=== PATIENT | female | born 1980 | race Caucasian/White ===

== ENCOUNTER 2016-11-19 11:09 | Emergency (ER) | payer BC ==
[2016-11-19 11:39] VITALS: BP 96/63
--- NOTE | 2016-11-19 15:21 | UC ---
Back Pain HPI - HPI Summary HPI Summary: pt at 13 wks ga, with h/o of chronic low back pain p/w with c/o acute on chronic low back pain. - History of Current Complaint Chief Complaint: UCBackPain Stated Complaint: LUMBAR PAIN Time Seen by Provider: 11/19/16 12:14 Hx Obtained From: Patient ?: Yes Onset/Duration: Gradual Onset, Lasting Days - 5, Still Present, Worse Since - this am Timing: Constant, Intermittent Severity Initially: Moderate Severity Currently: Severe Pain Intensity: 9 Pain Scale Used: 0-10 Numeric Back Pain: Is Discrete @ - left lower back Character: Dull, Aching, Spasmodic Aggravating: Movement Alleviating: Position Associated Signs And Symptoms: Negative: Swelling, Redness, Bruising, Fever, Weakness, Numbness, Tingling, Abdominal Pain, Flank Pain, Bladder Incontinence, Bowel Incontinence - Allergies/Home Medications Allergies/Adverse Reactions: Allergies Allergy/AdvReac Type Severity Reaction Status Date / Time No Known Allergies Allergy Verified 11/19/16 11:24 Home Medications: Home Medications Acetaminophen [Acetaminophen Extra Stren] 2 tab PO TID PRN 11/19/16 [History Confirmed 11/19/16] Docosahexaenoic Acid [ Dha] 1 tab PO DAILY 11/19/16 [History Confirmed 11/19/16] Levothyroxine TAB* [Synthroid TAB*] 1 tab PO QAM 11/19/16 [History Confirmed ] PMH/Surg Hx/FS Hx/Imm Hx - Additional Past Medical History Additional PMH: chronic low back pain Endocrine History Of: Reports: Thyroid Disease - HYPOTHYROID Denies: Diabetes Cardiovascular History Of: Denies: Cardiac Disorders, Hypertension Respiratory History Of: Denies: COPD, Asthma GI/ History Of: Denies: Ulcer - Surgical History Surgical History: None - Family History Known Family History: Negative: Cardiac Disease, Hypertension, Diabetes - Social History Lives: With Family Alcohol Use: None Substance Use Type: None Smoking Status (MU): Never Smoked Tobacco - Immunization History Most Recent Influenza Vaccination: NO Most Recent Tetanus Shot: UNSURE Most Recent Pneumonia Vaccination: NO Review of Systems Gastrointestinal: Negative Genitourinary: Negative Motor: Negative Neurovascular: Negative Musculoskeletal: Myalgia Neurological: Negative All Other Systems Reviewed And Are Negative: Yes Physical Exam Triage Information Reviewed: Yes Appearance: Well-Appearing, Well-Nourished, Pain Distress - mild Vital Signs: Initial Vital Signs Temp 98.5 F 11/19/16 11:28 Pulse 77 11/19/16 11:28 Resp 16 11/19/16 11:28 BP 96/63 11/19/16 11:28 Pulse Ox 100 11/19/16 11:28 Vital Signs Reviewed: Yes Eyes: Positive: Conjunctiva Clear. Negative: Discharge ENT: Positive: Hearing grossly normal. Negative: Muffled/hoarse voice Neck: Positive: Supple, Nontender Respiratory: Positive: Lungs clear, Normal breath sounds, No respiratory distress, No accessory muscle use Cardiovascular: Positive: RRR, No Murmur Abdomen Description: Positive: Soft. Negative: Distended, Guarding Bowel Sounds: Positive: Present Musculoskeletal Exam: Normal Musculoskeletal: Positive: Strength Intact, No Edema Neurological: Positive: Alert, Muscle Tone Normal, Other: - strength, sensation , reflexes intact bl Psychological: Positive: Age Appropriate Behavior Skin Exam: Normal Back Pain Course/Dx - Differential Dx/Diagnosis Differential Diagnosis/HQI/PQRI: Herniated Disc, Strain, Other - lbp Provider Diagnoses: low back pain Discharge - Discharge Plan Condition: Stable Disposition: HOME Prescriptions: Acetaminop/Codeine 30 MG TAB* [Tylenol/Codeine 30 MG TAB*] 1 tab PO Q6H PRN #6 tab MDD 4 PRN Reason: Pain Patient Education Materials: Chronic Back Pain (ED) Referrals: Vadim FRANCO,Orin Quiñonez [Primary Care Provider] - Additional Instructions: ACETAMINOPHEN WITH CODEINE: You have been given a prescription for acetaminophen with codeine for pain control. Codeine is a narcotic. It is best taken with food, as nausea can result if taken on an empty stomach. Don't operate machinery or drive within six hours of taking this medication. Do not combine this medication with alcohol, or with any sedative type medicine such as cold tablets or sleeping pills unless your doctor gives permission. Narcotics tend to cause constipation. It's best to get plenty of fluids, fiber, and fruits. WE DO NOT LIKE TO GIVE OPIATES DURING . YOU ARE IN SEVERE PAIN WE CAN GIVE YOU A SMALL AMOUNT OF THIS MEDICATION TO HELP YOU GET HOME. WE HAVE SPOKEN WITH YOUR OB, DR BAY. SHE STATED THAT CODEINE IS SAFE FOR LIMITED USE IN - THE BIGGEST RISK IS WITH PROLONGED USE AND THE DEVELOPMENT OF DEPENDANCE. WE HAVE INCLUDED THE FOLLOWING RISK INFORMATION SO THAT YOU CAN DECIDE WETHER OR NOT YOU WANT TO TAKE THOSE RISKS. Risk Factor C Implications Animal reproduction studies have not been conducted with this combination. [US Boxed Warning]: Prolonged use of opioids during can cause opioid withdrawal syndrome, which may be life-threatening if not recognized and treated according to protocols developed by neonatology experts. If opioid use is required for a prolonged period in a woman, advise the patient of the risk of opioid withdrawal syndrome and ensure that appropriate treatment will be available. Refer to individual agents. Breast-Feeding Considerations Acetaminophen and codeine are excreted in breast milk. According to the level vial inspector and tester, the decision to continue or discontinue breast-feeding during therapy should take into account the risk of exposure, the benefits of breast-feeding to the infant, and benefits of treatment to the mother. Refer to individual agents. YOU WOULD LIKELY BENEFIT FROM OSTEOPATHIC TREATMENT. WE RECOMMEND THAT YOU FIND AN OSTEOPATHIC PHYSICIAN IN YOUR AREA WHO FOCUSES EXCLUSIVELY ON OSTEOPATHIC MANIPULATIVE MEDICINE WITH EXPERTISE IN MYOFACIAL, LYMPHATIC, VISCERAL AND INTEROSSEOUS WORK DR SANDIE [place]LEJAS [place], [place] [address] [id number], [place] [address] Get Directions
== END 2016-11-19 13:18 | disposition home or self-care (01) ==
LOC: UCCORT 11:09
DX: O26.892 Other specified pregnancy related conditions, second trimester (principal); M54.5 Low back pain; Z3A.14 14 weeks gestation of pregnancy; E03.9 Hypothyroidism, unspecified
CPT/HCPCS: 99202; G0463